=== PATIENT | male | born 1980 | race Caucasian/White ===

== ENCOUNTER 2020-01-06 14:40 | Emergency (ER) | payer OTHER ==
[~2020-01-06] VITALS: Ht 177.8 cm; Wt 97.5 kg
[2020-01-06 14:43] VITALS: BP 152/75
[2020-01-06] MEDS ORDERED: MORPHINE SULFATE 4 MG/ML SYR IM ONE (14:50)
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
[2020-01-06 15:29] VITALS: BP 152/75
== END 2020-01-06 15:29 | disposition home or self-care (01) ==
LOC: MED 14:40
DX: S82.002A Unspecified fracture of left patella, initial encounter for closed fracture (principal); M25.562 Pain in left knee; W13.2XXA Fall from, out of or through roof, initial encounter; Y93.89 Activity, other specified; Y92.89 Other specified places as the place of occurrence of the external cause; Y99.8 Other external cause status
CPT/HCPCS: 96372; 99283; J2270; 29505

== ENCOUNTER 2022-08-01 19:47 | Emergency (ER) | payer SELFPAY ==
[~2022-08-01] VITALS: Ht 177.8 cm; Wt 117.5 kg
[2022-08-01 20:11] VITALS: BP 140/82
[2022-08-01] MEDS ORDERED: FLUORESCEIN OPTH STRIP 1 MG OP ONE (20:20)
[2022-08-01] MEDS ORDERED: TETRACAINE HCL/PF 0.5% OPTH 4 ML BTL OP ONE (20:20)
[2022-08-01] MEDS ORDERED: TETRACAINE HCL/PF 0.5% OPTH 4 ML BTL ONE (21:26)
[2022-08-01] MEDS ORDERED: FLUORESCEIN OPTH STRIP 1 MG ONE (21:26)
[2022-08-01] MEDS ORDERED: PHEN28OI6 TP (21:54)
[2022-08-01] MEDS ORDERED: IBUP-2213 PO (21:54)
[2022-08-01] MEDS ORDERED: HYDR-2734 TP (21:54)
[2022-08-01] MEDS ORDERED: ERYT5OIN51 OP (21:54)
[2022-08-01] MEDS ORDERED: PSYL0.4C2 PO (21:54)
--- NOTE | 2022-08-01 21:59 | NUR ---
PATIENT DC'D WITH INSTRUCTIONS. VERBALIZED UNDERSTANDING
== END 2022-08-01 21:59 | disposition home or self-care (01) ==
LOC: MED 19:47
DX: S05.01XA Injury of conjunctiva and corneal abrasion without foreign body, right eye, initial encounter (principal); K64.9 Unspecified hemorrhoids; Z79.899 Other long term (current) drug therapy; X58.XXXA Exposure to other specified factors, initial encounter; Y93.89 Activity, other specified; Y92.89 Other specified places as the place of occurrence of the external cause; Y99.8 Other external cause status
CPT/HCPCS: 99283